=== PATIENT | female | born 2000 | race Caucasian/White ===

== ENCOUNTER 2022-03-26 22:32 | Emergency (ER) | payer OTHER ==
[~2022-03-26] VITALS: Ht 165.1 cm; Wt 59.1 kg
[2022-03-26] MEDS ORDERED: ALDACTONE 25MG25 M1 (23:09)
[2022-03-26 23:59] VITALS: BP 137/83; PULSE 79
== END 2022-03-27 00:05 | disposition home or self-care (01) ==
LOC: COL.ER 22:32
DX: R07.89 Other chest pain (principal); L08.9 Local infection of the skin and subcutaneous tissue, unspecified
CPT/HCPCS: J1885